=== PATIENT | male | born 1970 | race Caucasian/White ===

== ENCOUNTER 2023-11-16 21:42 | Emergency (ER) | payer OTHER, SELFPAY ==
[2023-11-16 21:43] VITALS: BP 164/86; PULSE 70; RESP 16; TEMP 36.4; O2SAT 97; BMI 31.8
--- NOTE | 2023-11-16 22:02 | EKG12_ITS ---
Test Reason : CP Blood Pressure : / mmHG Vent. Rate : 073 BPM Atrial Rate : 073 BPM P-R Int : 206 ms QRS Dur : 080 ms QT Int : 406 ms P-R-T Axes : 039 -07 014 degrees QTc Int : 447 ms Normal sinus rhythm Normal ECG Confirmed by Figueroa Lopez ([id number]), non linear editor PARTHA SCHULZ ([id number]) on 11/17/2023 10:06:02 AM Referred By: Confirmed By:Figueroa Lopez
--- NOTE | 2023-11-16 22:03 | ED.VIS.CHEST ---
HPI History of Present Illness Chief Complaint: Chest Pain Informant: patient Onset/Context/Timing Onset: Today and Hours (7) Activity at onset: gradual, onset, activity on onset and rest Timing: Continuous Quality: Positive for Aching Location: Left Chest (radiating into left upper arm) Current Severity: Mild Maximum Severity: Moderate Worsened By: - (lying down); Not Worsened By Breathing Relieved By: Nothing Associated Symptoms: Positive for - (maybe a brief flutter in chest earlier); Negative for Nausea, Vomiting, Diaphoresis, Dyspnea, Cough, Fever or Lightheadedness Narrative Narrative: Healthy 53-year-old male presenting with chest discomfort has been left-sided the entire time, radiating to his left upper arm some of the time, but it has not gone away in the past 7 hours. He states this morning he got on treadmill ran 2 miles without any difficulty. Has never had this before and has never had any heart problems in the past. Denies all risk factors. No family members 55 or younger that of had problems with her heart that he knows of. Parents do not have cholesterol issues, he saw his doctor 1 or 2 years ago had his cholesterol checked, stated that it was recommended that he adjust diet and exercise but is not on any medications. CVD Risk Factors: Negative for Hypertension, Diabetes, Hypercholesterolemia, Family History 1' </=55 or Smoking PE Risk Factors: Negative for Recent Travel/Surgery, Recent Immobilization, Prior DVT or PE, Cancer or OCP + Smoking + >/=35 PFSH PFSH Medical History no medical history no medical history Home Medications NK 11/16/23 [History Last Taken Unknown] Allergy/AdvReac Type Severity Reaction Status Date / Time No Known Allergies Allergy Verified 11/16/23 21:43 Social History (Updated 11/16/23 @ 22:[address] Cyrus Koenig MD) Smoking Status: Never smoker substance use type: does not use well-balanced diet: other details: Practices intermittent fasting ROS ROS ED Constitutional Constitutional ED: Denies chills or fever(s) Eyes Eyes: Denies change in vision or diplopia ENT ENT ED: Denies rhinorrhea or sore throat Cardiovascular Cardiovascular: Reports as per HPI, chest pain, flutter in chest and radiating jaw, neck or arm pain; Denies pedal edema Respiratory/Chest Respiratory/Chest: Denies cough or dyspnea Gastrointestinal Gastrointestinal: Denies abdominal pain, diarrhea, nausea or vomiting Genitourinary Genitourinary ED: Denies dysuria or hematuria Musculoskeletal Musculoskeletal: Denies back pain or neck pain Integumentary Denies abscess or rash Neurologic Neurologic: Denies headache(s), paresthesias or weakness Psychiatric Psychiatric: Denies anxiety or suicidal thoughts EXAM Physical Exam Const Vital Signs: 11/16/23 21:43 11/16/23 22:04 11/16/23 22:06 Temperature 97.6 F L Temperature Source Temporal Pulse Rate 70 Respiratory Rate 16 Respiratory Effort Normal Short of Breath Blood Pressure 164/86 H Blood Pressure Mean 112 Pulse Ox 97 Oxygen Delivery Method Room Air 11/16/23 22:48 11/16/23 23:39 Temperature Temperature Source Pulse Rate 64 68 Respiratory Rate 19 H 16 Respiratory Effort Blood Pressure 124/68 H 115/65 Blood Pressure Mean 86 81 Pulse Ox 95 98 Oxygen Delivery Method Room Air Room Air Positive well nourished and well developed General Appearance ED: well developed and NAD HEENT Reports moist mucous membranes normocephalic and atraumatic Eyes PERRL and EOMs intact bilaterally Neck full ROM, supple and no JVD Chest Wall inspection of chest normal and palpation of chest normal Resp normal respiratory effort and clear to auscultation bilaterally Cardio regular rate, regular rhythm and no murmurs Rate: Negative for tachycardic GI non-tender and non-distended Auscultation: normoactive bowel sounds Palpation: soft Back/Spine no CVA tenderness General Back: other FROM Extremity normal to inspection General Extremety ED: Negative for edema, pulses abnormal or tenderness General Extremity: Negative for edema or pulses abnormal Neuro oriented x3, CN's II-XII intact bilaterally and no sensory deficits noted Sensorium / Orientation: awake and alert Motor Exam: strength 5/5 throughout Skin no rashes or lesions noted and no wounds Heart Score History: Moderately Suspicious ECG: Normal Age: >45 - <65 years Risk Factors: No Risk Factors Troponin: </= Normal Limit Score: 2 MDM MDM MDM Narrative Medical decision making narrative: EKG is normal, as interpreted by myself, obtained while patient having symptoms. While obtaining the rest of the workup he was given a GI cocktail and some hyoscyamine given the relatively low risk for acute cardiac etiology. He states this might of helped some, he still had some residual symptoms on reexamination. 1 view x-ray of the chest on my interpretation normal, radiology in agreement. His troponin is less than 3. He has had constant discomfort for 7 hours or more before we lorie his blood. I am comfortable letting him go home and close outpatient follow-up, especially with a heart score of 2 he is comfortable with that plan we discussed everything prior to discharge. Lab Data Attestation: I reviewed the patient's lab results. Labs: Laboratory Results - last 24 hr 11/16/23 22:00 WBC 7.2 RBC 4.89 Hgb 15.9 Hct 44.3 MCV 90.6 MCH 32.5 H MCHC 35.9 RDW Std Deviation 40.7 RDW Coeff of Mahesh 12.4 Plt Count 267 MPV 10.3 Immature Gran % (Auto) 0.100 Neut % (Auto) 53.4 Lymph % (Auto) 37.8 [place] % (Auto) 7.8 Eos % (Auto) 0.6 Baso % (Auto) 0.3 Absolute Neuts (auto) 3.8 Absolute Lymphs (auto) 2.71 Nucleated RBC % 0 Sodium 138 Potassium 3.8 Chloride 106 Carbon Dioxide 27.0 Anion Gap 5 BUN 16 Creatinine 1.19 Estim Creat Clear Calc 79.59 Est GFR (MDRD) Af Amer 83 Est GFR (MDRD) Non-Af 68 BUN/Creatinine Ratio 13.4 Glucose 159 H Calcium 9.1 Troponin I High Sens < 3 L Radiography Diagnostic Testing: Clinical Impression(s) from Imaging Studies Chest X-Ray 11/16/23 22:30 IMPRESSION: No radiographic evidence of acute cardiopulmonary disease. Electronically Signed: Humberto Bishop MD at 23:13 EDT Reading Location ID and State: [facility] / [place] Tel , Service support , Discharge Plan Triage Chief Complaint: Chest Pain ED Provider: Cyrus Koenig Dx/Rx/DC Orders Clinical Impression: Atypical chest pain Instructions: ED Chest Pain, Noncardiac Prescriptions: No Action NK Primary Care Provider: Jayjay Jean Referrals: Jayjay Jean MD [Primary Care Provider] - (Call for follow-up) Disposition Disposition: Home, Self Care
[2023-11-16] MEDS: Mag Hydrox/Al Hydrox/Simeth 30 ML UDC PO (22:09)
[2023-11-16] MEDS: Hyoscyamine Sulfate 0.125 MG Tablet 0.25 MG SL (22:12)
--- NOTE | 2023-11-16 22:30 | RAD_ITS ---
INDICATION: chest pain EXAMINATION/TECHNIQUE: X-RAY - portable upright AP chest x-ray COMPARISON: None. FINDINGS: LINES/DEVICES: None. LUNGS: No consolidation, edema or effusion. No pneumothorax. MEDIASTINUM AND CARDIOVASCULAR STRUCTURES: Cardiac silhouette not enlarged. Central airways and mediastinal contour are unremarkable. BONES AND SOFT TISSUES: Unremarkable. RAD/Chest 1 View (Portable) IMPRESSION: No radiographic evidence of acute cardiopulmonary disease. Electronically Signed: Humberto Bishop MD at 23:13 EDT ,
[2023-11-16 22:45] LABS: Absolute Lymphocyte Count 2.71 X10^3/uL (0.83-4.51); Absolute Neutrophil Count 3.8 X10^3/uL (2.0-7.7); Basophil# 0.02 X10^3/uL; Basophil% 0.3 % (0-1); Eosinophil# 0.04 X10^3/uL; Eosinophils% 0.6 % (0-5); Hematocrit 44.3 % (40-54); Hemoglobin 15.9 g/dL (13.0-16.5); Lymphocyte # 2.71 X10^3/ul (0.83-4.51); Lymphocyte % 37.8 % (19-41); Mean Corp Hgb Conc 35.9 g/dL (32-36); Mean Corpuscular Hgb 32.5 pg (27.0-32.0); Mean Corpuscular Volume 90.6 fL (80-94); Mean Platelet Vol. 10.3 fl (6.2-12.0); Monocyte# 0.56 X10^3/uL; Monocyte% 7.8 % (0-10); NRBC Flagged by Analyzer 0 % (0-5); Neutrophil # 3.83 X10^3/uL (2.7-7.7); Neutrophil % 53.4 % (47-70); Platelet Count 267 K/mm3 (150-450); RBC Distribution Width CV 12.4 % (11.6-14.6); RBC Distribution Width SD 40.7 fl (35.1-43.9); Red Blood Count 4.89 M/mm3 (4.6-6.2); White Blood Count 7.2 K/mm3 (4.4-11.0)
[2023-11-16 22:48] VITALS: BP 124/68; PULSE 64; RESP 19; O2SAT 95
[2023-11-16 23:20] LABS: Anion Gap 5 (5-15); BUN 16 mg/dL (7-18); BUN/Creat Ratio 13.4 RATIO (10-20); Calcium,Total 9.1 mg/dL (8.5-10.1); Chloride 106 mmol/L (98-107); Creatinine, Serum 1.19 mg/dL (0.70-1.30); EST Glomerular Filtration Rate 68 mL/min (>60); Est Glom Filt Rate - Afr Amer 83 mL/min (>60); Estimated Creatinine Clearance 79.59 ml/min; Glucose 159 mg/dL (74-106); Potassium 3.8 mmol/L (3.5-5.1); Sodium Level 138 mmol/L (136-145); Troponin-I HS < 3 pg/mL (3.0-78.0)
[2023-11-16 23:39] VITALS: BP 115/65; PULSE 68; RESP 16; O2SAT 98
[2023-11-17 00:47] VITALS: BP 119/85; PULSE 59; RESP 16; TEMP 36.3; O2SAT 96
== END 2023-11-17 00:48 | disposition home or self-care (01) ==
PROVIDERS: Emergency Provider Emergency Medicine; PCP Family Medicine; Visit Provider Emergency Medicine
DX: R07.89 Other chest pain (principal)
CPT/HCPCS: 71045; 80048; 84484; 85025; 93005; 99284; A4216